=== PATIENT | female | born 1960 | race Caucasian/White ===

== ENCOUNTER → 2016-12-10 | Outpatient (CLI) | payer MEDICARE ==
[~2016-12-10] MED LIST: ADVAIR DIS1 PUFF/DO2 IH; ASA325 MG PO; AUGMENTIN 250250 MG PO; CIPRO500 MG PO; DESYREL-DPS50 MG PO; DUONEB DPS3 ML IH; FLEXERIL-DPS10 MG PO; GLUCOPHAGE-DPS500 MG PO; HYDROCHLOROTHIA25 MG PO; HYDROCODONE 5MG/5 MG PO; LANTUS100 UNITS/ SQ; LEVOTHYROXINE175 MCG PO; MAALOX DPS30 ML PO; MORPHINE2 MG/ML SQ; NEXIUM 24HR20 MG PO; NOVOLOG100 UNIT/2 SQ; PRAVACHOL40 MG PO; PROZAC DPS20 MG PO; SENOKOT DPS8.6 MG PO; TOUJEO SOL300 UNIT/1 SQ; XANAX DPS0.5 MG PO
== END | disposition home or self-care (01) ==
LOC: EDT 12-02 13:30
DX: E11.9 Type 2 diabetes mellitus without complications (principal)

== ENCOUNTER → 2016-12-25 | Outpatient (CLI) | payer MEDICARE | END | disposition home or self-care (01) | LOC: NUE 13:49 | DX: E11.9 Type 2 diabetes mellitus without complications (principal); Z71.3 Dietary counseling and surveillance | CPT/HCPCS: 258 ==

== ENCOUNTER → 2017-01-09 | Outpatient (CLI) | payer MEDICARE | END | disposition home or self-care (01) | LOC: RAD.S 12:57 | DX: E07.9 Disorder of thyroid, unspecified (principal); Z85.850 Personal history of malignant neoplasm of thyroid ==

== ENCOUNTER → 2017-01-24 | Outpatient (CLI) | payer MEDICARE | END | disposition home or self-care (01) | LOC: RAD.S 11:56 | DX: J34.89 Other specified disorders of nose and nasal sinuses (principal); S02.2XXA Fracture of nasal bones, initial encounter for closed fracture ==

== ENCOUNTER 2017-01-27 20:19 | Emergency (ER) | payer MEDICARE ==
[~2017-01-27 20:19] MED LIST changes: -ADVAIR DIS1 PUFF/DO2 IH; -AUGMENTIN 250250 MG PO; -DESYREL-DPS50 MG PO; -LANTUS100 UNITS/ SQ; -MORPHINE2 MG/ML SQ; -SENOKOT DPS8.6 MG PO
--- NOTE | 2017-02-01 13:49 | ER ---
ADMIT: 01/27/2017 RM/LOC: [facility] MR#: [id number] [address] [address] ANTON[place] PETERSON [address] [address] Emergency Room Report SEX: F AGE: 56 : 1960 DATE: 01/27/2017 Please refer to the main provider's note for complete physical exam and history. The patient was signed out to me. 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 After talking to the patient and family, they said that the patient has difficulty finding words sometimes and also difficulty typing text for the last 4 days after the patient had a fall. 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 Per partner, the patient had sometimes forgetfulness since then and sometimes difficulty finding the right words in the conversation. CT of the brain was negative for any acute changes or bleeding. PHYSICAL EXAMINATION: GENERAL: I talked to the patient. The patient was alert, oriented to person, place, and time lying in bed, in no obvious pain or distress. The patient had no new focal neurological deficit. HEENT: Head and neck were noncontributory, except for some abrasions on the nose and also some mild deformity, with information of the CT scan of nose for nasal fracture. CHEST: Clear bilaterally. HEART: Normal heart sounds. ABDOMEN: Soft. NEUROLOGICAL: Motor and sensory were grossly normal. ADMIT: 01/27/2017 RM/LOC: ER MR#: [id number] [facility] [address] [address] ANTONINA PETERSON [address] [place] [address] Emergency Room Report SEX: F AGE: 56 : 1960 The rest of the neural exam was grossly normal. Dr. Unger, who is covering for Dr. Angel, was contacted. After discussing the case, we both agreed that at this stage, there is no need for any MRI or any other interventions and concussion versus medication side effect is at the top of our differentials, knowing the patient is on antidepression meds and pain control meds. Case was discussed with the patient, she was alert and oriented, in no obvious pain or distress and she agreed to follow up with Dr. Angel's clinic tomorrow. The patient this evening with dose of the insulin Humalog and the blood sugar was in the range of 500, the patient received the same dose of Humalog 12 units in the ER and received 1 L of IV fluids. The patient is stable to be discharged to home. Mic Fagan MD/ osman JOB #: [id number] CC: Samm Rodriguez MD, Attending Physician Jacky Angel DO, Family Physician
[2017-05-20] MEDS ORDERED: MORPHINE2 MG/ML SQ (13:11)
[2017-05-20] MEDS ORDERED: AUGMENTIN 250250 MG PO (13:13)
[2017-05-20] MEDS ORDERED: ADVAIR DIS1 PUFF/DO2 IH (13:13)
[2017-05-20] MEDS ORDERED: SENOKOT DPS8.6 MG PO (13:13)
[2017-05-20] MEDS ORDERED: DUONEB DPS3 ML IH (13:13)
[2017-05-20] MEDS ORDERED: DESYREL-DPS50 MG PO (13:14)
[2017-05-20] MEDS ORDERED: LANTUS100 UNITS/ SQ (13:14)
== END 2017-01-27 23:40 | disposition home or self-care (01) ==
LOC: ER 20:19
DX: S06.0X0A Concussion without loss of consciousness, initial encounter (principal); S02.2XXA Fracture of nasal bones, initial encounter for closed fracture; E11.65 Type 2 diabetes mellitus with hyperglycemia; E78.00 Pure hypercholesterolemia, unspecified; J45.909 Unspecified asthma, uncomplicated; F32.9 Major depressive disorder, single episode, unspecified; F41.9 Anxiety disorder, unspecified; K21.9 Gastro-esophageal reflux disease without esophagitis; Z88.1 Allergy status to other antibiotic agents; W20.8XXA Other cause of strike by thrown, projected or falling object, initial encounter